=== PATIENT | female | born 1985 | race African-American/Black ===

== ENCOUNTER 2018-04-12 11:18 | Emergency (ER) | payer MEDICAID, OTHER ==
[~2018-04-12] VITALS: Ht 167.6 cm; Wt 95.5 kg
[~2018-04-12 11:18] MED LIST: DIFL500T PO; METH750T2 PO; Z.0.NO CURRENT MEDS
[2018-04-12 11:30] VITALS: BP 107/58; PULSE 77; RESP 16; TEMP 98.8; O2SAT 100
[2018-04-12] MEDS ORDERED: IBUPROFEN 800 MG TAB PO ONE (11:45)
--- NOTE | 2018-04-12 11:45 | PD ---
HPI Chief Complaint: Laceration/Skin Injury Time Seen by Provider: 11:37 Travel History International Travel<30 days: No Contact w/Intl Traveler<30days: No Traveled to known affect area: No History of Present Illness HPI 32-year-old female presents to the emergency department with complaint of a laceration to her upper inner lip after slipping and hitting it on the back of her bed, while playing with her kids, and does not know if maybe she bit her lip today. Unknown tetanus status. Denies dental trauma or loose teeth. Denies loss of consciousness, vomiting. Has not taken any medications or try any treatments to alleviate her symptoms. Rates pain 9/10. Describes as throbbing. No known aggravating or relieving factors. Primary care provider is Dr. Randle. Allergies to penicillin, sulfa, a azithromycin. Denies significant past medical history. Has no other medical complaints. No other modifying factors or associated signs and symptoms. PFSH Past Medical History Asthma: Yes ([place]) Diminished Hearing: No Respiratory: Yes (BR[place]IT[place]) Immunizations Current: No : 3 Para: 1 : 1 Past Surgical History Cholecystectomy: Yes Social History Alcohol Use: Yes (1 DRINK A MONTH) Tobacco Use: Yes (1/2 ppd ) Substance Use: Yes (SMOKE WEED) Allergies-Medications (Allergen,Severity, Reaction): Coded Allergies: azithromycin (Verified Allergy, Severe, Rash, 04/12/18) Sulfa (Sulfonamide Antibiotics) (Unverified Allergy, Mild, HIVES, 04/12/18) penicillin G (Unverified Allergy, Mild, HIVES, 04/12/18) Reported Meds & Prescriptions Reported Meds & Active Scripts Active Ibuprofen 800 Mg Tab 800 Mg PO Q6HR PRN Review of Systems Except as stated in HPI: all other systems reviewed are Neg Physical Exam Narrative GENERAL: Well-nourished, well-developed black female patient, in no acute distress SKIN: Warm and dry. HEAD: Atraumatic. Normocephalic. EYES: Pupils equal and round. No scleral icterus. No injection or drainage. ENT: Mucosa pink and moist. Airway patent. MOUTH: No dental trauma or loose teeth to the left upper dentition. Left, frontal upper intraoral lip with approximately 0.5 cm laceration; bleeding controlled; left upper lip is edematous. NECK: Trachea midline. CARDIOVASCULAR: Regular rate. RESPIRATORY: No accessory muscle use. GASTROINTESTINAL: Flat. MUSCULOSKELETAL: No obvious deformities. No clubbing. No cyanosis. No edema. NEUROLOGICAL: Awake and alert. Oriented 3. No obvious cranial nerve deficits. Motor grossly within normal limits. Normal speech. PSYCHIATRIC: Appropriate mood and affect; insight and judgment normal. Data Data Last Documented VS Vital Signs Date Time Temp Pulse Resp B/P (MAP) Pulse Ox O2 Delivery O2 Flow Rate FiO2 04/12/18 11:30 98.8 77 16 107/58 (74) 100 Orders Orders Ibuprofen (Motrin) (04/12/18 11:45) Ice/Cold Pack (04/12/18 11:45) Ed Discharge Order (04/12/18 11:45) Tetanus/Diphtheria Tox Adult (Tetanus/Di (04/12/18 12:00) [facility] Medical Decision Making Medical Screen Exam Complete: Yes Emergency Medical Condition: Yes Medical Record Reviewed: Yes Differential Diagnosis Liver laceration, intraoral lip laceration, contusion Narrative Course 32-year-old female with laceration of intraoral surface of the upper left lip. Bleeding is controlled. The laceration does not require suturing. Discussed care for oral laceration. Tetanus updated in the ER. Ibuprofen and ice pack ordered. Ibuprofen prescribed for home. Instructed patient to follow up with primary care provider. Patient verbalizes understanding and agreement with treatment plan. Patient is medically cleared and stable for discharge. Discussed reasons to return to the emergency department. Patient agrees with treatment plan. The patients vital signs are stable and the patient is stable for outpatient follow-up and treatment. Patient discharged home, stable and in no acute distress. Diagnosis Primary Impression: Laceration of intraoral surface of lip Qualified Codes: S01.511A - Laceration without foreign body of lip, initial encounter Referrals: Primary Care Physician Patient Instructions: General Instructions, Laceration (ED), Laceration Without Closure (ED) Additional Instructions: Ibuprofen and/or Tylenol as directed and as needed for pain and inflammation Ice to affected area to help decrease pain and inflammation Warm water, or warm salt water gargles to help with wound care Follow-up with primary care provider Return to the emergency department immediately for worsening of symptoms Med/Other Pt SpecificInfo: Prescription(s) given Scripts Ibuprofen (Ibuprofen) 800 Mg Tab 800 MG PO Q6HR Y for PAIN, #30 TAB 0 Refills Prov: Rassi,Dayana K [employer] 04/12/18 Disposition: 01 DISCHARGE HOME Condition: Stable Dayana Chow April 12, 2018 11:45
[2018-04-12] MEDS ORDERED: IBUP1TAB7 PO (11:48)
[2018-04-12] MEDS ORDERED: TETANUS/DIPHTHERIA TOXOID ADULT 0.5 ML VIAL IM ONE (12:00)
== END 2018-04-12 12:16 | disposition home or self-care (01) ==
LOC: NEPD 11:18
DX: S01.511A Laceration without foreign body of lip, initial encounter (principal); F12.90 Cannabis use, unspecified, uncomplicated; F17.210 Nicotine dependence, cigarettes, uncomplicated; W22.03XA Walked into furniture, initial encounter; Z23 Encounter for immunization
CPT/HCPCS: 90471; 90714